=== PATIENT | female | born 1975 | race Caucasian/White ===

== ENCOUNTER 2019-08-01 00:18 | Emergency (ER) | payer OTHER ==
[~2019-08-01] VITALS: Ht 152.4 cm; Wt 49.9 kg
--- NOTE | 2019-08-01 00:46 | NUR ---
UA sent to lab
[2019-08-01 00:50] LABS: *BILIRUBIN,URIN NEGATIVE (NEGATIVE); *BLOOD, URINE 3+ (NEGATIVE); *COLOR,URINE PINK (YELLOW); *KETONES,URINE NEGATIVE (NEGATIVE); *UROBILINOGEN,URINE 0.2 E.U./dl (NORMAL); LEUKOCYTE ESTERASE ,URINE 3+ (NEGATIVE); NITRITE, URINE NEGATIVE (NEGATIVE); UGLUCOSE NEGATIVE (NEGATIVE)
[2019-08-01 00:52] LABS: *CLARITY,URINE SLIGHTLY CLOUDY (CLEAR); *URINE HCG, QUAL NEGATIVE (NEGATIVE)
[2019-08-01 01:10] LABS: BACTERIA,URINE FEW /HPF (NONE SEEN); RBC,URINE 20-50 /HPF (0-3); SQUAMOUS EPITHELIAL CELL,UR FEW /HPF (NONE SEEN); WBC,URINE 20-50 /HPF (0-3)
--- NOTE | 2019-08-01 01:32 | NUR ---
Patient discharged to home in stable conditon. Written and verbal after care instructions given. Patient verbalizes understanding of instructions. AMBULATORY W/ STABLE GAIT ALL BELONGINGS W/ PT
--- NOTE | 2019-08-01 01:44 | NUR ---
Patient discharged to home in stable conditon. Written and verbal after care instructions given. Patient verbalizes understanding of instructions. patient self ambulatory with steady gait. Exit care package and personal belongings taken home with the patient at discharge.
[2019-08-01 02:27] VITALS: BP 125/78
== END 2019-08-01 01:35 | disposition home or self-care (01) ==
LOC: ER 00:24
DX: N30.90 Cystitis, unspecified without hematuria (principal); Z88.8 Allergy status to other drugs, medicaments and biological substances
CPT/HCPCS: 84703; 87086; A4663